=== PATIENT | male | born 1960 | race Caucasian/White ===

== ENCOUNTER 2018-06-21 16:41 | Emergency (ER) | payer OTHER ==
[~2018-06-21] VITALS: Ht 182.9 cm; Wt 99.8 kg
[2018-06-21] MEDS ORDERED: TESTOSTERON100 MG/ML IM (16:53)
[2018-06-21 17:07] LABS: ABSOLUTE BASOPHILS 0.1 thou/uL (0.0-0.2); ABSOLUTE EOSINOPHILS 0.1 thou/uL (0.0-0.7); ABSOLUTE LYMPHOCYTES 2.5 thou/uL (0.8-5.3); ABSOLUTE MONOCYTES 0.7 thou/uL (0.0-1.2); ABSOLUTE NEUTROPHILS 4.6 thou/uL (1.6-8.1); BASOPHILS 0.7 %; EOSINOPHILS 1.2 %; HEMATOCRIT 44.9 % (42.0-52.0); HEMOGLOBIN 15.5 gm/dL (14.0-18.0); LYMPHOCYTES 31.2 %; MCH 30.9 pg (26.0-34.0); MCHC 34.5 g/dL (28.0-37.0); MCV 89.5 fL (80.0-100.0); MONOCYTES 8.6 %; MPV 7.8 fl. (7.2-11.1); NUCLEATED RBCS 0 /100WBC; PLATELET COUNT* 256 thou/uL (150-400); POLYS 58.3 %; RBC 5.02 mil/uL (4.50-6.00); RDW-CV 12.5 % (10.5-14.5); WBC 7.9 thou/uL (4.0-11.0)
[2018-06-21 17:17] LABS: ANION GAP 7 mmol/L (7-16); BUN 15 mg/dL (7-18); CHLORIDE 102 mmol/L (98-107); CO2 30 mmol/L (21-32); CREATININE 1.1 mg/dL (0.6-1.3); GLUCOSE 104 mg/dL (70-99); SODIUM 139 mmol/L (136-145)
[2018-06-21 17:19] LABS: APTT 26.9 Seconds (25.0-31.3)
[2018-06-21 17:36] LABS: ALBUMIN 3.9 g/dL (3.4-5.0); ALKALINE PHOSPHATASE 110 U/L (46-116); LIPASE 225 U/L (73-393); MAGNESIUM 1.8 mg/dL (1.8-2.4); NT-PRO BRAIN NAT PEPTIDE 11 pg/mL (<300); SGOT 28 U/L (15-37); SGPT 39 U/L (30-65); TOTAL PROTEIN 7.8 g/dL (6.4-8.2); TROPONIN-I LEVEL <0.06 ng/mL (<0.06)
[2018-06-21 18:22] VITALS: BP 138/79
--- NOTE | 2018-06-22 10:54 | EKG ---
[place] [address] ELECTROCARDIOGRAM REPORT Name: AIDANVESTA Room: [facility]OL[facility]CENTSViktor#: [id number] Admission: 06/21/18 Attend Phys: Discharge: 06/21/18 Date of : 60 Report #: [id number] THIS REPORT FOR: //name// [facility] ED Test Date: 2018-06-21 Test Time: 16:49:03 Pat Name: VESTA BERMUDEZ Department: Room: Gender: M Transportation Attendant: : 1960 Requested By: Al Rai Order Number: [id number] MD: Oli Cruz Measurements Intervals [place] Rate: 65 P: 65 UT: 164 QRS: -4 QRSD: 106 T: -5 QT: 388 QTc: 404 Interpretive Statements Sinus rhythm Left ventricular hypertrophy Borderline T abnormalities, inferior leads No previous ECG available for comparison Electronically Signed On 06-22-2018 10:54:14 CDT by Oli Cruz [email or web address] <ELECTRONICALLY SIGNED> By: Oli Cruz MD, [facility] 06/22/18 1054 [id number] [id number] Oli Cruz MD, FACC /EPI
== END 2018-06-21 18:24 | disposition home or self-care (01) ==
LOC: M.ERS 16:41
PROVIDERS: Family Medicine
DX: R07.9 Chest pain, unspecified (principal); F41.9 Anxiety disorder, unspecified; Z88.0 Allergy status to penicillin